=== PATIENT | female | born 1940 | race Caucasian/White ===

== ENCOUNTER 2017-09-08 15:58 | Emergency (ER) | payer MEDICARE ==
[2017-09-08] MEDS ORDERED: METHYLPREDNISOLONE PF 125MG/VIAL IVP ONE (16:02)
--- NOTE | 2017-09-08 16:08 | Emergency Department Record ---
History of Present Illness - General Chief complaint: Allergic Reaction Stated complaint: REACTION Time Seen by Provider: 09/08/17 16:02 Source: Patient Mode of Arrival: Ambulatory Limitations: No limitations - History of Present Illness Initial Comments: 77 yo female presents with a rash to the face, chest and arms. It itches and prado. She thinks she was exposed to sumac. No cough or shortness of breath. No nausea or vomiting. No fever. The first spots started about 20 hours ago. She is allergic to Benadryl. MD Complaint: Allergic reaction, Facial swelling, Other -: Days(s) (1) Exposure: Plant Symptoms: Itching Severity: Moderate Treatment Prior to Arrival: Other ([facility]) Previous Allergy History: Other - Related Data Home Medications Medication Instructions Recorded Confirmed Last Taken Ascorbic Acid [Vitamin C] 500 mg PO DAILY 09/08/17 09/08/17 Unknown Aspirin 81 mg PO DAILY 09/08/17 09/08/17 Unknown Furosemide [Lasix] 10 mg PO DAILY 09/08/17 09/08/17 Unknown Gentamicin Sulf/Prednisolone 5 ml OP Q6H 09/08/17 09/08/17 Unknown [Pred-G 1% Eye Drops] Latanoprost 0.005% Opth Megan 2.5 ml OP DAILY 09/08/17 09/08/17 Unknown [Xalatan] Melatonin 10 mg PO QHS 09/08/17 09/08/17 Unknown Trazodone HCl 25 mg PO QHS 09/08/17 09/08/17 Unknown Vit C/Vit E AC/Lut/Copper/Zinc 1 tab PO DAILY 09/08/17 09/08/17 Unknown [PreserVision Lutein Softgel] Previous Rx's Medication Instructions Recorded Prednisone [Prednisone 20Mg] 20 mg PO BID #10 tab 09/08/17 Prednisone [Prednisone 20Mg] 20 mg PO BID #10 tab 09/08/17 Allergies Allergy/AdvReac Type Severity Reaction Status Date / Time (Continued): Allergy Unknown Uncoded 07/22/13 10:10 Allergies: Allergy Unknown Uncoded 07/22/13 10:10 Review of Systems Constitutional: Denies: Chills, Fever, Weakness Eyes: Reports: Other (lid swelling). Denies: Eye discharge, Eye pain, Photophobia, Vision change ENT: Denies: Congestion, Throat pain Respiratory: Denies: Cough, Dyspnea, Hemoptysis Cardiovascular: Denies: Chest pain, Syncope Endocrine: Denies: Fatigue, Polydipsia, Polyuria Gastrointestinal: Denies: Diarrhea, Nausea, Vomiting Genitourinary: Denies: Dysuria, Urgency Musculoskeletal: Denies: Arthralgia, Back pain, Joint swelling, Myalgia Skin: Reports: As per HPI, Change in color, Pruritus, Rash. Denies: Bruising Neurological: Denies: Confusion, Headache, Numbness, Vertigo, Weakness Psychiatric: Denies: Anxiety Hematological/Lymphatic: Denies: Easy bleeding, Easy bruising Physical Exam - General General Appearance: Alert, Oriented x3, Cooperative, No acute distress Limitations: No limitations - Head Head exam: Atraumatic. negative: Normal inspection Head exam detail: Other (mild facial erythema with mild lid swelling, no drainage or pustules, blisters or bruising) - Eye Eye exam: PERRL, Periorbital swelling. negative: Normal appearance, Conjunctival injection, Periorbital tenderness, Scleral icterus - ENT ENT exam: Normal exam, Mucous membranes dry, Mucous membranes moist, Normal orophraynx Ear exam: Normal external inspection Nasal Exam: negative: Active bleeding, Discharge, Dried blood Mouth exam: negative: Drooling, Muffled voice Teeth exam: Normal inspection Throat exam: Normal inspection. negative: Tonsillar erythema, L peritonsillar mass - Neck Neck exam: Full ROM. negative: Normal inspection (Rash), Lymphadenopathy, Tenderness - Respiratory Respiratory exam: Normal lung sounds bilaterally. negative: Respiratory distress, Rhonchi, Stridor, Wheezes - Cardiovascular Cardiovascular Exam: Regular rate, Normal rhythm, Normal heart sounds - GI/Abdominal GI/Abdominal exam: Soft. negative: Tenderness - Rectal Rectal exam: Deferred - exam: Deferred - Extremities Extremities exam: negative: Normal inspection (scattered rash on the chest and arms) - Back Back exam: Reports: Normal inspection - Neurological Neurological exam: Alert, Oriented X3 - Psychiatric Psychiatric exam: Normal affect, Normal mood. negative: Agitated, Anxious - Skin Skin exam: Dry, Erythema, Urticaria. negative: Abrasion, Cyanosis, Diaphoretic , Mottled Distribution of rash: Chest, Face, Neck, RUE, LUE Description of rash: Erythematous Course - Reevaluation(s) Reevaluation #1: Rash is consistent with contact dermatitis No acute distress. Comfortable 09/08/17 16:07 Disposition Disposition: Discharge Clinical Impression: Rash, Contact dermatitis Disposition: Home, Self-Care Condition: (1) Good Instructions: Contact Dermatitis (ED) Additional Instructions: Cool compresses to the skin Take the prednisone as directed Return if worse, fever, cough or short of breath Prescriptions: Prednisone [Prednisone 20Mg] 20 mg PO BID #10 tab Prednisone [Prednisone 20Mg] 20 mg PO BID #10 tab Forms: Patient Portal Access Time of Disposition: 16:28 Quality - Quality Measures Quality Measures: N/A - Blood Pressure Screening Does Patient Have Any of the Following: Active Dx of HTN Blood Pressure Classification: Hypertensive Reading Systolic Measurement: 162 Diastolic Measurement: 74 Screening for High Blood Pressure: Patient Exclusion, Hx of HTN [G9744]
== END 2017-09-08 16:42 | disposition home or self-care (01) ==
LOC: ER 15:58
DX: R21 Rash and other nonspecific skin eruption (principal)
CPT/HCPCS: 96374; 99283; J2930

== ENCOUNTER 2018-09-03 16:59 | Emergency (ER) | payer MEDICARE ==
[2018-09-03] MEDS ORDERED: ACETAMINOPHEN 325 MG TAB PO ONE (17:06)
--- NOTE | 2018-09-03 17:21 | Emergency Department Record ---
History of Present Illness - General Chief complaint: Extremity Problem Stated complaint: LT KNEE PAIN Time Seen by Provider: 09/03/18 17:06 Source: Patient Mode of Arrival: Ambulatory Limitations: Physical limitation - History of Present Illness Initial comments: The patient is here due to L knee pain. She injured it about 30 minutes prior to presenting to the ER when she stepped down off the curb with her left knee slightly twisted and felt immediate pain. Since she has been unble to bend the knee but she is able to walk with pain. She states the pain is above the L knee cap. MD Complaint: Extremity pain Onset/Timin -: Minutes(s) Location: Left, Knee Severity scale (1-10): 10 Quality: Aching, Crushing Associated Symptoms: Denies other symptoms - Related Data Allergies Allergy/AdvReac Type Severity Reaction Status Date / Time acetaminophen [From Percocet] Allergy RASH Verified 09/03/18 17:13 adhesive tape Allergy RASH Verified 09/03/18 17:13 codeine Allergy RASH Verified 09/03/18 17:13 diphenhydramine Allergy HIVES Verified 09/03/18 17:13 [From Benadryl] ibandronate sodium Allergy HYPERSENSIT Verified 09/03/18 17:13 [From Boniva] IVITY morphine Allergy HYPERSENSIT Verified 09/03/18 17:13 IVITY oxycodone [From Percocet] Allergy RASH Verified 09/03/18 17:13 oxytetracycline Allergy SWELLING Verified 09/03/18 17:13 [From Terramycin] OF THE LIPS Penicillins Allergy SWELLING Verified 09/03/18 17:13 OF THE LIPS pentazocine [From Talwin] Allergy RASH Verified 09/03/18 17:13 prochlorperazine Allergy HYPERSENSIT Verified 09/03/18 17:13 [From Compazine] IVITY propranolol [From Inderal LA] Allergy SWELLING Verified 09/03/18 17:13 OF THE LIPS red yeast rice Allergy RASH Verified 09/03/18 17:13 sertraline [From Zoloft] Allergy SWELLING Verified 09/03/18 17:13 OF THE LIPS Sulfa (Sulfonamide Allergy SWELLING Verified 09/03/18 17:13 Antibiotics) OF THE LIPS triflupromazine Allergy HYPERSENSIT Verified 09/03/18 17:13 [From Vesprin] IVITY venlafaxine [From Effexor] Allergy RASH Verified 09/03/18 17:13 Travel Screening - Travel/Exposure Within Last 30 Days Have you traveled within the last 30 days?: No - Travel/Exposure Within Last Year Have you traveled outside the [place] in the last year?: No - Additonal Travel Details Have you been exposed to anyone with a communicable illness?: No - Travel Symptoms Symptom Screening: None Review of Systems Constitutional: Denies: Chills, Fever Eyes: Denies: Eye discharge ENT: Denies: Congestion Respiratory: Denies: Cough, Dyspnea Past Medical History - SOCIAL HISTORY Smoking Status: Never smoker Alcohol Use: None Drug Use: None - RESPIRATORY Hx Respiratory Disorders: Yes Hx Pneumonia: Yes - CARDIOVASCULAR Hx Cardio Disorders: Yes Comment:: murmur/edema - NEURO Hx Neuro Disorders: No - GI Hx GI Disorders: No - Hx Genitourinary Disorders: No - ENDOCRINE Hx Endocrine Disorders: No - MUSCULOSKELETAL Hx Musculoskeletal Disorders: Yes Hx Arthritis: Yes - PSYCH Hx Psych Problems: No - HEMATOLOGY/ONCOLOGY Hx Hematology/Oncology Disorders: No Family Medical History Any Significant Family History?: Yes Physical Exam - General General Appearance: Alert, Oriented x3, Cooperative, No acute distress - Head Head exam: Atraumatic, Normocephalic - Eye Eye exam: Normal appearance, PERRL - Extremities Extremities exam: Normal inspection (There is no joint swelling or bruising appreciated.), Normal capillary refill, Tenderness (There is tenderness to palpation over the L suprapatellar area. The patient is able to flex the L knee to about 30 degrees without pain. The L leg and foot are NVI.), Other (There is no ligamentous laxity appreciated.). negative: Calf tenderness, Full ROM, Joint swelling, Pedal edema - Neurological Neurological exam: Alert. negative: Motor sensory deficit Course - Reevaluation(s) Reevaluation #1: The patient is doing a little better after returning from xray. She has very slight increased flexion without pain to approx. 45 degrees and then does have the suprapatellar pain. I did discuss the neg xrays with the patient and the need to see her Orthopedic doctor later this week if not better. 09/03/18 17:51 Medical Decision Making - Data Complexity MDM Data: X-Ray Ordered and/or Reviewed - Radiology Data Radiology results: Report reviewed (L knee: Neg for any acute changes, Neg for joint effusion. Pos tricompartmental arthritis.) Disposition Disposition: Discharge Clinical Impression: Knee pain, left Qualifiers: Chronicity: acute Qualified Code(s): M25.562 - Pain in left knee Disposition: Home, Self-Care Condition: (2) Stable Instructions: Knee Pain (ED) Additional Instructions: Please use the sarath wrap and ice and elevate the L knee when possible. Use Tylenol for pain and please see your Certified Court Interpreter in 3-4 days if not better. Return to the ER for any worsening symptoms. Forms: Patient Portal Access Time of Disposition: 17:53 Quality - Quality Measures Quality Measures: N/A - Blood Pressure Screening View Details: Yes Does Patient Have Any of the Following: No Blood Pressure Classification: Pre-Hypertensive BP Reading Systolic Measurement: 137 Diastolic Measurement: 76 Screening for High Blood Pressure: < Pre-Hypertensive BP, F/U Documented > [G8950] Pre-Hypertensive Follow-up Interventions: Referral to alternative/primary care provider.
--- NOTE | 2018-09-05 07:13 | RADIOLOGY REPORT ---
EXAM: LEFT KNEE HISTORY: TWISTED THE LEFT KNEE WHILE STEPPING OFF OF A CURB A FEW HOURS AGO. LEFT KNEE PAIN WITH MOTION. TECHNIQUE: Three views of the left knee were obtained. Comparison: None. FINDINGS: The bones are osteopenic, but appear intact. There is no visible acute fracture, dislocation, or significant joint effusion. Joint space narrowing with associated subchondral sclerosis and marginal osteophyte formation are noted within the patellofemoral compartment. Enthesophyte formation is also noted at the upper pole of the patella. There are tiny marginal osteophytes within the medial and patellofemoral compartments. IMPRESSION: 1. NO ACUTE FRACTURE IDENTIFIED. 2. MODERATE ARTHRITIC CHANGES WITHIN THE PATELLOFEMORAL COMPARTMENT. 3. MINOR ARTHRITIC CHANGES WITHIN THE MEDIAL AND LATERAL COMPARTMENTS. JOB NUMBER: [id number] [facility]
== END 2018-09-03 17:59 | disposition home or self-care (01) ==
LOC: ER 16:59
DX: M25.562 Pain in left knee (principal)
CPT/HCPCS: 99283

== ENCOUNTER 2018-09-04 16:35 | Observation (INO) | payer MEDICARE ==
[2018-09-04] MEDS ORDERED: IBUPROFEN 400 MG TABLET PO ONE (17:00)
[2018-09-04] MEDS ORDERED: ACETAMINOPHEN 1,000 MG/100 ML BTL IVPB ONE (17:03)
--- NOTE | 2018-09-04 17:07 | Emergency Department Record ---
History of Present Illness - General Chief Complaint: Knee injury Stated Complaint: LT KNEE INJURY Time Seen by Provider: 09/04/18 16:41 Source: Patient Mode of Arrival: Wheelchair Limitations: No limitations - History of Present Illness Initial Comments: The patient is here due to L knee pain for one day. She initially injured the L knee yesterday by stepping down a single step and feeling pain in the L knee. She did not fall or have any direct trauma. The patient was seen in the ER here and had a neg exam for any swelling, or bruising and a neg xray so she was discharged to home. Today she was sitting on the couch and the L knee suddenly became very painful. She did not fall or twist the knee. She denies any numbness or tingling to the L leg or foot. MD Complaint: Knee injury Onset/Timin -: Hour(s) Type of Injury: Other Place: Home Severity: Severe Severity scale (1-10): 10 Improves With: Nothing Worsens With: Movement, Weight bearing Associated Symptoms: Unable to bear weight - Related Data Allergies Allergy/AdvReac Type Severity Reaction Status Date / Time acetaminophen [From Percocet] Allergy RASH Verified 09/03/18 17:13 adhesive tape Allergy RASH Verified 09/03/18 17:13 codeine Allergy RASH Verified 09/03/18 17:13 diphenhydramine Allergy HIVES Verified 09/03/18 17:13 [From Benadryl] ibandronate sodium Allergy HYPERSENSIT Verified 09/03/18 17:13 [From Boniva] IVITY morphine Allergy HYPERSENSIT Verified 09/03/18 17:13 IVITY oxycodone [From Percocet] Allergy RASH Verified 09/03/18 17:13 oxytetracycline Allergy SWELLING Verified 09/03/18 17:13 [From Terramycin] OF THE LIPS Penicillins Allergy SWELLING Verified 09/03/18 17:13 OF THE LIPS pentazocine [From Talwin] Allergy RASH Verified 09/03/18 17:13 prochlorperazine Allergy HYPERSENSIT Verified 09/03/18 17:13 [From Compazine] IVITY propranolol [From Inderal LA] Allergy SWELLING Verified 09/03/18 17:13 OF THE LIPS red yeast rice Allergy RASH Verified 09/03/18 17:13 sertraline [From Zoloft] Allergy SWELLING Verified 09/03/18 17:13 OF THE LIPS Sulfa (Sulfonamide Allergy SWELLING Verified 09/03/18 17:13 Antibiotics) OF THE LIPS triflupromazine Allergy HYPERSENSIT Verified 09/03/18 17:13 [From Vesprin] IVITY venlafaxine [From Effexor] Allergy RASH Verified 09/03/18 17:13 Travel Screening - Travel/Exposure Within Last 30 Days Have you traveled within the last 30 days?: No Review of Systems Constitutional: Denies: Chills, Fever Eyes: Denies: Eye discharge ENT: Denies: Congestion Respiratory: Denies: Cough, Dyspnea Past Medical History - SOCIAL HISTORY Smoking Status: Never smoker - RESPIRATORY Hx Respiratory Disorders: Yes Hx Pneumonia: Yes - CARDIOVASCULAR Hx Cardio Disorders: Yes Comment:: murmur/edema - NEURO Hx Neuro Disorders: No - GI Hx GI Disorders: No - Hx Genitourinary Disorders: No - ENDOCRINE Hx Endocrine Disorders: No - MUSCULOSKELETAL Hx Musculoskeletal Disorders: Yes Hx Arthritis: Yes - PSYCH Hx Psych Problems: No - HEMATOLOGY/ONCOLOGY Hx Hematology/Oncology Disorders: No Family Medical History Any Significant Family History?: No Physical Exam - General General Appearance: Alert, Oriented x3, Cooperative, No acute distress - Head Head exam: Atraumatic, Normocephalic, Normal inspection - Eye Eye exam: Normal appearance, PERRL - ENT Throat exam: Normal inspection. negative: Tonsillar erythema, Tonsillar exudate - Neck Neck exam: Normal inspection, Full ROM. negative: Tenderness - Respiratory Respiratory exam: Normal lung sounds bilaterally. negative: Respiratory distress - Cardiovascular Cardiovascular Exam: Regular rate, Normal rhythm, Normal heart sounds. negative: Diastolic murmur - GI/Abdominal GI/Abdominal exam: Soft, Normal bowel sounds. negative: Tenderness - Extremities Extremities exam: Normal inspection (There is no swelling or bruising associated with the L knee.), Normal capillary refill, Tenderness (There is exquisite tenderness to palpation over the anterior tibia area.), Other (The L leg and foot are NVI with normal sensation and pulses.). negative: Calf tenderness (The L calf is very soft and nontender.), Full ROM, Joint swelling, Pedal edema - Neurological Neurological exam: Abnormal gait (due to L knee pain.), Alert. negative: Motor sensory deficit, Normal gait - Psychiatric Psychiatric exam: negative: Depressed - Skin Skin exam: negative: Rash Course Vital Signs 09/04/18 16:37 Temperature 99.8 F H Pulse Rate 79 Respiratory 20 Rate Blood Pressure 154/74 Pulse Ox 97 - Reevaluation(s) Reevaluation #1: I did discuss the neg xrays with the patient and the need for using a knee immobilizer on the L knee. The patient is very reluctant to go home due to the pain and the need to use stairs so I did offer to keep the patient in the hospital overnight. I did discuss the case with Dr. Souza and he does agree with the plan. Dr. Souza will consult Dr. Aponte tomorrow if needed. 09/04/18 18:37 Medical Decision Making - Data Complexity MDM Data: Labs Ordered and/or Reviewed, X-Ray Ordered and/or Reviewed - Lab Data Result diagrams: 09/04/18 17:10 09/04/18 17:10 - Radiology Data Radiology results: Report reviewed (L lower leg: neg for acute changes. L knee CT: Neg for acute changes. Significant arthritis.) Disposition Disposition: Admit Clinical Impression: Inability to walk Disposition: Still a Patient at [facility] Decision to Admit: Admit from ER Decision to Admit Date: 09/04/18 Decision to Admit Time: 18:39 Accepting Physician: Libby Time Discussed w/Accepting Physician: 18:39 Condition: (2) Stable Instructions: Swollen Knee Joint (ED) Forms: Patient Portal Access Time of Disposition: 18:39 Quality - Quality Measures Quality Measures: N/A - Blood Pressure Screening View Details: Yes Does Patient Have Any of the Following: No Blood Pressure Classification: Hypertensive Reading Systolic Measurement: 154 Diastolic Measurement: 74 Screening for High Blood Pressure: < First Hypertensive BP, F/U Documented > [G8950] First Hypertensive Follow-up Interventions: Referral to alternative/primary care provider.
[2018-09-04] MEDS ORDERED: KETOROLAC 30 MG/ML VIAL IVP ONE (17:56)
[2018-09-04 18:10] LABS: ABSOLUTE NEUTROPHIL COUNT 3.57; BASO % 0.5 % (0-6); EOS % 2.4 % (0-6); GRAN % 54.6 % (47-80); HEMATOCRIT 38.1 % (35.0-47.0); HEMOGLOBIN 12.4 gm/dl (11.6-16.0); LYMPH % 30.6 % (16-45); MEAN CELL VOLUME 97.9 fl (81-97); MEAN CORPUSCULAR HEMOGLOBIN 31.9 pg (27-33); MEAN CORPUSCULAR HGB CONC 32.5 g/dl (32-36); MEAN PLATELET VOLUME 9.9 fl (7.4-10.4); MONO % 11.9 % (0-9); PLATELET COUNT 307 K/uL (130-400); RED BLOOD COUNT 3.89 M/uL (3.80-5.40); RED CELL DISTRIBUTION WIDTH 12.4 % (11.5-14.5); WHITE BLOOD COUNT W/O DIFF 6.5 K/uL (4.2-12.2)
[2018-09-04 18:20] LABS: BILIRUBIN,TOTAL 0.4 mg/dL (0.2-1.0)
[2018-09-04 18:21] LABS: TOTAL PROTEIN 6.9 g/dL (6.6-8.7)
[2018-09-04 18:26] LABS: ALB/GLOB RATIO 1.8 (1.1-1.8); ALBUMIN 4.4 g/dL (4.0-5.0)
[2018-09-04] MEDS ORDERED: TRAMADOL HCL 50 MG TABLET PO PRN (19:41)
[2018-09-04] MEDS ORDERED: ACETAMINOPHEN 1,000 MG/100 ML BTL IVPB SCH (19:41)
[2018-09-04] MEDS ORDERED: TRAZODONE 50 MG TABLET PO SCH (22:00)
[2018-09-04] MEDS ORDERED: ENALAPRIL 5 MG TABLET PO SCH (22:00)
[2018-09-04] MEDS ORDERED: MELATONIN 5 MG TABLET PO SCH (22:00)
[2018-09-04] MEDS: ACETAMINOPHEN 1,000 MG/100 ML BTL IVPB SCH (23:23)
[2018-09-05] MEDS: KETOROLAC 30 MG/ML VIAL IVP PRN ×2 (01:00→07:55)
[2018-09-05] MEDS: ACETAMINOPHEN 1,000 MG/100 ML BTL IVPB SCH ×2 (05:48→13:51)
--- NOTE | 2018-09-05 07:16 | RADIOLOGY REPORT ---
EXAM: LEFT TIBIA AND FIBULA HISTORY: PAIN WITHIN THE LEFT LOWER LEG AND KNEE. TECHNIQUE: AP and lateral views of the left tibia and fibula were obtained. Comparison: Left knee series dated 09/03/18. FINDINGS: There is generalized soft tissue swelling within the lower leg. The bones appear intact. There is no visible acute fracture or dislocation. Post surgical changes are present within the hindfoot. There are mild arthritic changes within the knee and ankle. IMPRESSION: 1. NO ACUTE OSSEOUS ABNORMALITY. 2. MILD SOFT TISSUE SWELLING WITHIN THE LOWER LEG. J[facility]BER: [id number] [facility]
--- NOTE | 2018-09-05 07:30 | CT SCAN REPORT ---
EXAM: CT SCAN OF THE LEFT LOWER EXTREMITY WITHOUT CONTRAST HISTORY: RECENT INJURY. PERSISTENT LEFT KNEE PAIN. TECHNIQUE: Standard CT imaging of the left knee was performed in the axial plane without contrast. Additional coronal and sagittal reformatted images were performed. Multiplanar three dimensional volume rendered reformatted images were performed on an independent workstation under concurrent supervision. Comparison: Left knee x-ray dated 09/03/18. FINDINGS: The bones are osteopenic, but appear intact. Marginal osteophytes are present within all three compartments. Chronic appearing calcification is noted along the medial aspect of the knee medial to the medial femoral condyle. This may represent an ossified loose body. This appears well corticated. A small suprapatellar joint effusion is present. There is mild subchondral sclerosis. There is no discretely visible fracture or ligamentous injury. Evaluation for ligamentous injury is limited with CT. If symptoms persist, an MRI of the knee would be recommended for further assessment. A small popliteal cyst is present within the usual location. IMPRESSION: 1. MILD TRICOMPARTMENTAL ARTHRITIC CHANGES AND SMALL JOINT EFFUSION. 2. NO ACUTE FRACTURE IDENTIFIED. 3. SMALL POPLITEAL CYST. JOB NUMBER: [id number] [facility]
[2018-09-05] MEDS ORDERED: ASPIRIN 81 MG CHEWABLE TABLET PO SCH (10:00)
[2018-09-05] MEDS ORDERED: FUROSEMIDE 20 MG TABLET PO SCH (10:00)
[2018-09-05] MEDS ORDERED: PREDNISONE 20 MG TAB PO ONE (13:22)
[2018-09-05] MEDS ORDERED: TRAMADOL HCL 50 MG TABLET PO PRN (13:45)
--- NOTE | 2018-09-05 15:37 | Discharge Note ---
VTE H&P Assessment - Risk for VTE Risk for VTE: Yes Risk Level: Moderate Risk Assessment Date: 09/05/18 Risk Assessment Time: 15:30 VTE Orders Placed or Will Be Placed: Yes VTE Reason for No Prophylaxis: Not Indicated Discharge Medications - Discharge Medications Prescriptions: Tramadol HCl [Ultram] 50 mg PO Q6H PRN #12 tablet PRN Reason: Pain - Moderate (5-7) Home Medications: Ambulatory Orders Ascorbic Acid [Vitamin C] 500 mg PO DAILY 09/08/17 [Last Taken 1 Day Ago ~09/02/18] Aspirin 81 mg PO DAILY 09/08/17 [Last Taken 1 Day Ago ~09/02/18] Furosemide [Lasix] 10 mg PO DAILY 09/08/17 [Last Taken 1 Day Ago ~09/02/18] Gentamicin Sulf/Prednisolone [Pred-G 1% Eye Drops] 5 ml OP Q6H 09/08/17 [Last Taken 1 Day Ago ~09/02/18] Latanoprost 0.005% Opth Megan [Xalatan] 2.5 ml OP DAILY 09/08/17 [Last Taken 1 Day Ago ~09/02/18] Melatonin 10 mg PO QHS 09/08/17 [Last Taken 1 Day Ago ~09/02/18] Trazodone HCl 25 mg PO QHS 09/08/17 [Last Taken 1 Day Ago ~09/02/18] Vit C/Vit E AC/Lut/Copper/Zinc [PreserVision Lutein Softgel] 1 tab PO DAILY 09/08/17 [Last Taken 1 Day Ago ~09/02/18] Prednisone [Prednisone 20Mg] 20 mg PO BID #10 tab 09/05/18 [Last Taken Unknown] Tramadol HCl [Ultram] 50 mg PO Q6H PRN #12 tablet 09/05/18 [Last Taken Unknown] Discharge Note - Date Date of Discharge Note: 09/05/18 Disposition: Home, Self-Care Condition: (2) Stable Instructions: Swollen Knee Joint (ED) Additional Instructions: Follow up appointment with Dr. Souza Yahaira, September 11 at 9:30am. use prednisone 20 mg bid for 5 days Prescriptions: Prednisone [Prednisone 20Mg] 20 mg PO BID #10 tab Tramadol HCl [Ultram] 50 mg PO Q6H PRN #12 tablet PRN Reason: Pain - Moderate (5-7) Referrals: Kelvin Souza D.O. [Primary Care Provider] - Forms: Patient Portal Access Activity at Discharge: Increase Activity as Tolerated
[2018-09-05] MEDS ORDERED: ENOXAPARIN 30 MG/0.3 ML SYR SQ ONE (15:45)
--- NOTE | 2018-09-06 07:51 | History and Physical Report ---
DATE OF ADMISSION: 09/05/2018 CHIEF COMPLAINT: Left knee pain. HISTORY OF PRESENT ILLNESS: [place] 78[place]year[place] her left knee on a curb. She came into the ER yesterday with left knee pain on 09/03/2018, with an x-ray, which was negative for any acute abnormalities, sent home to follow up with Dr. Aponte and myself. She came back in on 09/04/2018 in severe pain with her left knee, seen by Dr. Briscoe, admitted to the hospital for observation, pain control, and orthopedic consult with Dr. Aponte. She had, on her second ER visit, a CT of the knee and the leg, which was negative except for osteoarthritis, and tib-fib, which was negative for any abnormality. MEDICAL HISTORY: Dementia, history of a heart murmur, arthritis, and she has glaucoma. SURGICAL HISTORY: Appendectomy, gallbladder removal, cataract surgery, tonsillectomy, and knee replacement, right knee. CURRENT MEDICATIONS: On admission: 1. Vitamin for her eyes, 1 a day. 2. Trazodone 25 mg each night. 3. Melatonin 10 mg each night 4. Xalatan drops daily. 5. Lasix 10 mg daily. 6. Aspirin 81 mg daily. 7. Vitamin C 500 mg daily. She may be on a prednisone/gentamicin drop, but I think that is old. ALLERGIES: Acetaminophen from Percocet, adhesive tape, codeine, diphenhydramine, Boniva, morphine, oxycodone, oxytetracycline, penicillin, Talwin, Compazine, Propranolol, red yeast rice, Sertraline, sulfa, triflupromazine from Vesprin, Effexor. SOCIAL HISTORY: Her about 4 or 5 months ago. She has never smoked. No alcohol or drug use. FAMILY HISTORY: No significant family history. SYSTEMS REVIEW: HEENT: No upper respiratory infection symptoms, cough, cold, or congestion. Cardiovascular: No chest pain, palpitations, or arrhythmias. Respiratory: No cough, cold, or congestion. Gastrointestinal: No nausea, vomiting, diarrhea, black stools, or bloody stools. Genitourinary: No dysuria, hematuria, frequency, or burning on urination. Musculoskeletal: See Chief Complaint. She has left knee pain. Neurologic: No CVA, paralysis, or paresthesias. Gynecologic: No lumps in her breasts or vaginal bleeding. Endocrine: No diabetes or thyroid disease. Integument: No rash, ulcers, change in moles, or yellow skin. PHYSICAL EXAMINATION: VITAL SIGNS: Height 5 feet 7 inches. Weight 188 pounds. Temperature 97.5. Pulse 80. Blood pressure 151/61. Respiratory rate 17. Pulse oximetry 93% on room air. HEENT: Pupils equal, round, and reactive to light and accommodation. Extraocular muscles intact. Throat is clear. Nose is clear. Tympanic membranes are schafer. NECK: Supple. No jugular venous distention. No hepatojugular reflux. No carotid bruits. Thyroid is smooth. CARDIOVASCULAR: Regular rate and rhythm without murmurs, clicks, rubs, or gallops. RESPIRATORY: Clear to auscultation and percussion. ABDOMEN: Soft, nontender. No hepatosplenomegaly. No masses. No tenderness. Bowel sounds are active. EXTREMITIES: See Chief Complaint. She has pain in the left knee on palpation, exquisite, screaming-type pain, which seems atypical for significant trauma. She is able to move her knee about 40 degrees. She has pain with ambulation but is able to ambulate in the aly. Peripheral pulses are good. No signs of a DVT. BREASTS: Deferred. GYNECOLOGIC: Deferred. RECTAL: Deferred. NEUROLOGICAL: Cranial nerves II through XII intact. No gross deficits. Sensation normal. Strength normal. Deep tendon reflexes equal bilaterally. Babinski is negative. MENTAL STATUS: Alert and oriented x3. IMPRESSION: 1. Left knee pain. 2. Left knee strain. 3. Osteoarthritis, left knee, with exacerbation of pain. 4. Dementia. PLAN: Dr. Aponte consult, pain control, further evaluation. [facility]
--- NOTE | 2018-09-06 08:00 | Discharge Summary ---
DATE OF ADMISSION: 09/05/2018 DATE OF DISCHARGE: 09/05/2018, 8:30 p.m. She was actually discharged about 3:00 p.m. DISCHARGE DIAGNOSES: 1. Left knee pain. 2. Left knee strain. 3. Osteoarthritis of the left knee with exacerbated pain of her knee. 4. Dementia. 5. Glaucoma. ATTENDING PHYSICIAN: Kelvin Souza D.O. REASON FOR HOSPITALIZATION: Patient was placed in the hospital for observation and Dr. Aponte consult with Orthopedics. She was having exquisite pain in the ER. Dr. Briscoe could not get her to leave the hospital. She was given Toradol IV, Tylenol orally, and Ultram for her pain. She was doing better, and consult was obtained with Dr. Aponte, who examined the patient but did not want to give her any injection into the knee because her pain was very atypical in the sense that she was screaming just when he touched her skin. He felt that he may hurt the patient by doing an injection. At that point, we changed the course of treatment to prednisone orally 20 mg twice a day and pain control and discharging her to follow up as an outpatient. The patient refused to wear the knee immobilizer, which I recommend she wear. Therapy provided, pain control, and consultation with Dr. Aponte. HOSPITAL COURSE: Improved but still in exquisite pain at times in the left knee. DISCHARGE INSTRUCTIONS: Follow up with Dr. Souza on Monday at 9:30 a.m., Ultram 50 mg every 6 hours p.r.n. for 3 days, prednisone 20 mg b.i.d. for 5 days, and continue her home medications. [facility]
--- NOTE | 2018-09-06 11:51 | Medical Records Consult ---
DATE OF CONSULTATION: 09/05/2018 REASON FOR CONSULTATION: Left knee pain. HISTORY OF PRESENT ILLNESS: This 78-year-old female was admitted to [facility] for treatment of a painful left knee. She was admitted on 09/04/2018 with uncontrolled pain. X-rays and CT of her left knee were obtained. These studies demonstrated osteoarthritis of her left knee. No acute findings. No evidence of fracture. The patient was seen in the emergency department 2 days earlier when she stepped off of a curb and had rather sudden onset of pain along the medial aspect of her knee. She was discharged home from the emergency room but returned to subsequently be admitted secondary to the severe pain in her knee. She did not record any swelling of her knee. PHYSICAL EXAMINATION: At this point in time, she is lying comfortably in the bed, and we have removed the knee immobilizer to look at her knee. On gross inspection, the knee appears to be normal. There does not appear to be any effusion. Light touch up and down the leg, and even deep palpation away from the knee, is not painful whatsoever. She does not appear to have an effusion. However, she has exquisite pain to palpation in the general vicinity of the medial femoral condyle, which she states markedly exacerbates her pain, and this is just with extremely light touch. This is not even moving her knee whatsoever. It is almost a hysterical reaction. The knee does not appear to be warm to the touch. She is able to actively flex the knee to approximately 20 degrees, and it does not seem to be terribly uncomfortable for her. Her neurovascular status appears to be intact. IMPRESSION: The knee, at this point, in my opinion, does not demonstrate any signs of sepsis. There is no redness, no effusion, and she is actually able to move it herself, to some degree, with little to no pain. She does not have any pain to palpation anywhere else in the knee. No posterior pain and no lateral pain and none anteriorly, either. When I very lightly touched the medial aspect of her knee, she screamed loudly in pain and said that she was having spasms. I palpated her thigh and calf muscles, and no muscle spasms were present. The muscles were soft. DIAGNOSES: 1. Osteoarthritis of the left knee. 2. Possible torn medial meniscus, left knee. 3. Left knee pain out of proportion to the physical findings. RECOMMENDATION: I have discussed the findings with her and with Dr. Souza. I have recommended an MRI of the knee. I would allow range of motion as tolerated. She may receive benefit from oral steroids and pain medications as required. There certainly does seem to be some psychological overlay to this pain, which could also be further investigated. Thank you for allowing me to participate in the care of your patient. ANAMARIA
== END 2018-09-05 17:09 | disposition home or self-care (01) ==
LOC: ER 16:35 → MEDSURG 19:33
PROVIDERS: ADMIT Emergency Medicine; ATTEND Emergency Medicine
DX: S89.92XD Unspecified injury of left lower leg, subsequent encounter (principal); R60.9 Edema, unspecified; M19.90 Unspecified osteoarthritis, unspecified site
CPT/HCPCS: 85025; 80053; 84484; 73590; 73700; 93005; G0378 ×2; J1885 ×2; J7512

== ENCOUNTER 2018-11-13 14:20 | Emergency (ER) | payer MEDICARE ==
[2018-11-13] MEDS ORDERED: MORPHINE SULFATE 5 MG/ML VIAL IVP ONE (14:26)
--- NOTE | 2018-11-13 14:28 | Emergency Department Record ---
History of Present Illness - General Stated complaint: LT LEG INJURY Time Seen by Provider: 11/13/18 14:23 Source: Patient Mode of Arrival: Ambulatory Limitations: No limitations - History of Present Illness Initial comments: 78 yo female presents after feeling a pop in her knee. She has a history of knee replacement many years ago. She was sitting outside and felt a sharp pop in the knee and now she has significant pain. She placed the knee is a brace. She states she is not allergic to Morphine. MD Complaint: Extremity pain, Joint pain -: Hour(s) Location: Left -: Yes Arthralgia Radiation: Distal Quality: Aching, Sharp, Stabbing Consistency: Constant Improves with: Immobilization Worsens with: Weight bearing Associated Symptoms: Denies other symptoms - Related Data Previous Rx's Medication Instructions Recorded Prednisone [Prednisone 20Mg] 20 mg PO BID #10 tab 09/05/18 Tramadol HCl [Ultram] 50 mg PO Q6H PRN #12 tablet 09/05/18 Allergies Allergy/AdvReac Type Severity Reaction Status Date / Time acetaminophen [From Percocet] Allergy RASH Verified 09/03/18 17:13 adhesive tape Allergy RASH Verified 09/03/18 17:13 codeine Allergy RASH Verified 09/03/18 17:13 diphenhydramine Allergy HIVES Verified 09/03/18 17:13 [From Benadryl] ibandronate sodium Allergy HYPERSENSIT Verified 09/03/18 17:13 [From Boniva] IVITY morphine Allergy HYPERSENSIT Verified 09/03/18 17:13 IVITY oxycodone [From Percocet] Allergy RASH Verified 09/03/18 17:13 oxytetracycline Allergy SWELLING Verified 09/03/18 17:13 [From Terramycin] OF THE LIPS Penicillins Allergy SWELLING Verified 09/03/18 17:13 OF THE LIPS pentazocine [From Talwin] Allergy RASH Verified 09/03/18 17:13 prochlorperazine Allergy HYPERSENSIT Verified 09/03/18 17:13 [From Compazine] IVITY propranolol [From Inderal LA] Allergy SWELLING Verified 09/03/18 17:13 OF THE LIPS red yeast rice Allergy RASH Verified 09/03/18 17:13 sertraline [From Zoloft] Allergy SWELLING Verified 09/03/18 17:13 OF THE LIPS Sulfa (Sulfonamide Allergy SWELLING Verified 09/03/18 17:13 Antibiotics) OF THE LIPS triflupromazine Allergy HYPERSENSIT Verified 09/03/18 17:13 [From Vesprin] IVITY venlafaxine [From Effexor] Allergy RASH Verified 09/03/18 17:13 Review of Systems Constitutional: Denies: Chills, Fever, Malaise, Weakness Eyes: Denies: Eye discharge ENT: Denies: Congestion, Throat pain Respiratory: Denies: Cough, Dyspnea, Wheezes Cardiovascular: Denies: Chest pain, Palpitations, Syncope Endocrine: Denies: Fatigue Gastrointestinal: Denies: Abdominal pain, Diarrhea, Nausea, Vomiting Genitourinary: Denies: Dysuria, Urgency Musculoskeletal: Reports: Arthralgia, Myalgia. Denies: Back pain Skin: Denies: Bruising, Change in color, Rash Neurological: Denies: Headache Psychiatric: Denies: Anxiety Hematological/Lymphatic: Denies: Easy bleeding, Easy bruising Past Medical History - SOCIAL HISTORY Smoking Status: Never smoker Drug Use: None - RESPIRATORY Hx Respiratory Disorders: Yes Hx Pneumonia: Yes - CARDIOVASCULAR Hx Cardio Disorders: Yes Comment:: murmur/edema - NEURO Hx Neuro Disorders: No - GI Hx GI Disorders: No - Hx Genitourinary Disorders: No - ENDOCRINE Hx Endocrine Disorders: No - MUSCULOSKELETAL Hx Musculoskeletal Disorders: Yes Hx Arthritis: Yes - PSYCH Hx Psych Problems: No - HEMATOLOGY/ONCOLOGY Hx Hematology/Oncology Disorders: No Physical Exam - General General Appearance: Alert, Oriented x3, Cooperative, No acute distress Limitations: No limitations - Head Head exam: Atraumatic, Normal inspection - Eye Eye exam: Normal appearance, PERRL. negative: Conjunctival injection, Scleral icterus - ENT ENT exam: Normal exam, Mucous membranes moist Ear exam: Normal external inspection Nasal Exam: Normal inspection Mouth exam: Normal external inspection - Neck Neck exam: Normal inspection - Respiratory Respiratory exam: Normal lung sounds bilaterally. negative: Respiratory distress - Cardiovascular Cardiovascular Exam: Regular rate, Normal rhythm, Normal heart sounds - GI/Abdominal GI/Abdominal exam: Soft - Rectal Rectal exam: Deferred - exam: Deferred - Extremities Extremities exam: Normal inspection, Joint swelling, Normal capillary refill, Tenderness. negative: Calf tenderness, Full ROM, Pedal edema Image of Full Body: 1 - medial joint tenderness otherwise non tender, patella intact, lateral joint line nontender - Back Back exam: Denies: CVA tenderness (R), CVA tenderness (L) - Neurological Neurological exam: Alert, Oriented X3 - Psychiatric Psychiatric exam: Normal affect, Normal mood - Skin Skin exam: Dry, Intact, Normal color, Warm Course - Reevaluation(s) Reevaluation #1: 11/13/18 15:44 The knee XR was reviewed. NO definite fracture, questionable linear opacity lateral aspect of the medical femoral condyle The results were reviewed with the patient. We discussed the recommendation to close follow up with Dr Souza and likely arrange an outpatient MRI 11/13/18 16:18 The findings were discussed with Dr Souza The patient's pain is not well controlled so CT scan ordered 11/13/18 16:29 11/13/18 18:[address] was negative for acute fracture The patient was updated on the results She is doing much better ready for DC She will follow up with Dr Souza Disposition Disposition: Discharge Clinical Impression: Left knee sprain Qualifiers: Encounter type: initial encounter Involved ligament of knee: unspecified ligament Qualified Code(s): S83.92XA - Sprain of unspecified site of left knee, initial encounter Disposition: Home, Self-Care Condition: (1) Good Instructions: Knee Sprain (ED), Knee Immobilizer (ED) Additional Instructions: Call your doctor for the next available follow up appointment You may need an MRI to further investigate the injury Use the crutches or walker for support Review this ER visit and the tests performed with your family doctor Return to the ER for a recheck if worse, any new concerns or questions Take the prescriptions provided as directed Forms: Patient Portal Access Time of Disposition: 15:56 Quality - Quality Measures Quality Measures: N/A - Blood Pressure Screening Does Patient Have Any of the Following: No Blood Pressure Classification: Hypertensive Reading Systolic Measurement: 143 Diastolic Measurement: 91 Screening for High Blood Pressure: < Pre-Hypertensive BP, F/U Documented > [G8950] Pre-Hypertensive Follow-up Interventions: Referral to alternative/primary care provider.
[2018-11-13] MEDS ORDERED: ACETAMINOPHEN 1,000 MG/100 ML BTL IVPB ONE (14:45)
[2018-11-13] MEDS ORDERED: KETOROLAC 30 MG/ML VIAL IVP ONE (16:30)
--- NOTE | 2018-11-14 04:57 | RADIOLOGY REPORT ---
EXAM: LEFT KNEE, TWO VIEWS HISTORY: SEVERE LEFT KNEE PAIN, JUST POPPED WHEN SITTING, MEDIAL PAIN. TECHNIQUE: Two views of the left knee were obtained. Comparison: 09/04/18. FINDINGS: The joint spaces are preserved with minimal spurring. Trace suprapatellar effusion. Faint calcification is present just lateral to the medial femoral condyle, equivocal for acute injury. No other acute abnormality is identified. IMPRESSION: 1. FAINT LINEAR CALCIFICATION INVOLVING THE LATERAL ASPECT OF THE MEDIAL FEMORAL CONDYLE EQUIVOCAL FOR ACUTE INJURY. 2. THE JOINT SPACES APPEAR PRESERVED, TRACE SUPRAPATELLAR EFFUSION. JOB NUMBER: [id number] [employer]
--- NOTE | 2018-11-14 12:52 | CT SCAN REPORT ---
EXAM: CT OF THE LEFT KNEE HISTORY: SUDDEN ONSET OF LEFT KNEE PAIN WHILE SITTING. TECHNIQUE: CT of the left knee was performed without contrast. Comparison: CT of the left knee 09/04/18 and x-rays of the left knee 11/13/18. FINDINGS: The bones are osteopenic, but otherwise appear intact. There is narrowing of the medial joint space compartment and patellofemoral joint. Moderate narrowing of the medial joint space compartment and severe narrowing of the lateral aspect of the patellofemoral joint. The lateral joint space compartment appears fairly well maintained. There are marginal osteophytes adjacent to all three joint space compartments. Chronic appearing calcification is now noted along the lateral aspect of the medial femoral condyle. This has migrated from its previous position. Previously this was adjacent to the medial aspect of the medial femoral condyle. This likely represents an ossified loose body. There is no fracture or acute osseous abnormality. Evaluation for ligamentous injury is limited with CT. If symptoms persist an MRI could be of benefit. There is a small popliteal cyst which appears unchanged. IMPRESSION: 1. TRICOMPARTMENTAL ARTHRITIC CHANGES MOST PROMINENT IN THE PATELLOFEMORAL JOINT. 2. NO FRACTURE OR ACUTE OSSEOUS ABNORMALITY. 3. PROBABLE LOOSE BODY. 4. POPLITEAL CYST. JOB NUMBER: [id number] [facility]
== END 2018-11-13 18:13 | disposition home or self-care (01) ==
LOC: ER 14:20
DX: S83.92XA Sprain of unspecified site of left knee, initial encounter (principal); X58.XXXA Exposure to other specified factors, initial encounter; Y92.008 Other place in unspecified non-institutional (private) residence as the place of occurrence of the external cause; Z96.652 Presence of left artificial knee joint
CPT/HCPCS: 96374; 96375; 99284; J1885